=== PATIENT | male | born 1990 | race Caucasian/White ===

== ENCOUNTER 2023-07-17 19:16 | Emergency (ER) | payer OTHER, SELFPAY ==
[2023-07-17 19:38] VITALS: BP 144/89; PULSE 99; RESP 18; TEMP 36.6; O2SAT 99
--- NOTE | 2023-07-17 19:52 | ED.URI ---
HPI - URI/Sore Throat General Chief Complaint: Upper Respiratory Infection Stated Complaint: fever Time Seen by Provider: 07/17/23 19:40 Source: patient Mode of arrival: ambulatory Limitations: no limitations History of Present Illness HPI Narrative: Napoleon is a 33-year-old male patient presenting to the clinic today with complaints of a sore throat, headache, and fever x3 days. His and daughter also have similar symptoms. Recently had COVID 2 weeks ago and was exposed to strep 1 week ago. MD elicited complaint: fever, sore throat and other (, headache) Related Data Home Medications Medication Instructions Recorded Confirmed No Home Medications 07/17/23 07/17/23 Allergies Allergy/AdvReac Type Severity Reaction Status Date / Time No Known Allergies Allergy Verified 07/17/23 19:36 Review of Systems Review of Systems: Pertinent positives per HPI. Patient denies any rash, visual changes, dizziness, cough, shortness of breath, chest pain, palpitations, nausea, vomiting, diarrhea, constipation, abdominal pain, or any urinary issues. PMFSH Comments At the time of my signature, I reviewed and agree with the nursing past medical, surgical, social, and family history. There is no relevant family history pertinent to the patient complaint. Exam Narrative: General: Well-developed, well nourished, in no apparent distress Head: Normocephalic, atraumatic Eyes: Pupils equally round and reactive to light bilaterally, EOM intact, sclera and conjunctive clear, no discharge, lids normal Ears: TMs intact and clear, ear canals clear, no drainage, grossly hearing normal. Nose: Nares patent, no discharge, no inflammation, no sinus tenderness. Mouth: Oral pharynx red with white exudate to the left on without lesions or masses, good dentition, MMM. Neck: Supple, trachea midline, mild enlargement of anterior cervical nodes, no thyroid masses or goiter palpable. Cardio: Regular rate and rhythm, s1 and s2 normal, no murmur appreciated. Resp: Clear to auscultation bilaterally, no rhonchi, rales, wheezing or rubs Course Course Emergency Course: Portions of this record may have been created with voice recognition software. Level of Care: Express Care Visit Vital Signs Vital signs: Vital Signs Temperature 36.6 C 07/17/23 19:38 Pulse Rate 99 07/17/23 19:38 Respiratory Rate 18 07/17/23 19:38 Blood Pressure 144/89 H 07/17/23 19:38 Pulse Oximetry 99 07/17/23 19:38 Oxygen Delivery Room Air 07/17/23 19:38 Temperature 36.6 C 07/17/23 19:38 Pulse Rate 99 07/17/23 19:38 Respiratory Rate 18 07/17/23 19:38 Blood Pressure 144/89 H 07/17/23 19:38 Pulse Oximetry 99 07/17/23 19:38 Oxygen Delivery Room Air 07/17/23 19:38 Vital signs reviewed MDM - URI/Sore Throat MDM Narrative Medical decision making narrative: At the time of visit patient is resting comfortably on the exam table. Strep screen was obtained was negative in the clinic today. I suspect patient has viral pharyngitis/URI/viral syndrome. Will send strep for culture. Supportive measures were discussed with the patient he voiced understanding discharge instructions and agrees to treatment plan. Differential Diagnosis Differential diagnosis: Likely upper respiratory infection, otitis media, sinusitis, viral infection, bronchitis, influenza, pharyngitis and other Discharge Plan Discharge Clinical Impression: Upper respiratory infection, Pharyngitis, Viral infection Patient Disposition: Home, Self-Care Condition: Stable Instructions: Antibiotic Form, Pharyngitis (ED), Upper Respiratory Infection (ED), Viral Syndrome (ED) Additional Instructions: Strep screen was negative in the clinic today. Will send for culture if this comes back positive we will contact him place you on antibiotics at that time. May take DayQuil/NyQuil for cold/flu symptoms Increase fluids and stay well hydrated Tylenol/motrin for pain
== END 2023-07-17 20:00 | disposition home or self-care (01) ==
PROVIDERS: Emergency Provider Nurse Practitioner Family
DX: J06.9 Acute upper respiratory infection, unspecified (principal); B34.9 Viral infection, unspecified; Z86.16 Personal history of COVID-19
CPT/HCPCS: 87081; 87880; 99203; G0463